=== PATIENT | male | born 1970 | race Two or more races ===

== ENCOUNTER 2017-07-22 12:24 | Emergency (ER) | payer BC ==
[~2017-07-22] VITALS: Ht 165.1 cm; Wt 99.8 kg
[2017-07-22 12:26] VITALS: BP 116/67
[2017-07-22 13:37] LABS: HEMOGLOBIN 15.9 g/dL (13.7-18.0); WHITE BLOOD COUNT 8.2 x10^3/uL (3.4-10)
[2017-07-22 13:51] LABS: ASPARTATE AMINO TRANSFERASE 21 U/L (15-37); BLOOD UREA NITROGEN 14 mg/dL (7-18)
== END 2017-07-22 14:23 | disposition home or self-care (01) ==
LOC: ED 14:10
DX: R21 Rash and other nonspecific skin eruption (principal)
CPT/HCPCS: 36415; 80053; 85025; 99284